=== PATIENT | female | born 1985 | race Caucasian/White ===

== ENCOUNTER 2018-01-29 10:16 | Emergency (ER) | payer MEDICAID ==
[~2018-01-29] VITALS: Ht 154.9 cm; Wt 87.5 kg
[2018-01-29 10:20] VITALS: BP 119/69
== END 2018-01-29 12:36 | disposition home or self-care (01) ==
LOC: ED 10:16
DX: O36.8120 Decreased fetal movements, second trimester, not applicable or unspecified (principal); Z3A.25 25 weeks gestation of pregnancy